=== PATIENT | female | born 1990 | race Hispanic/Latino ===

== ENCOUNTER 2020-12-05 02:27 | Day surgery (SDC) | payer OTHER ==
[2020-12-05 02:52] VITALS: BMI 36.3
[2020-12-05] MEDS ORDERED: hydrALAZINE 20 MG/ML VIAL SLOW IVP PRN (03:45)
== END 2020-12-05 06:48 | disposition home or self-care (01) ==
LOC: CSHLD/OP 02:27
PROVIDERS: ATTEND Obstetrics & Gynecology
DX: O47.1 False labor at or after 37 completed weeks of gestation (principal); O48.0 Post-term pregnancy; Z3A.40 40 weeks gestation of pregnancy; Z59.1 Inadequate housing
CPT/HCPCS: 99283

== ENCOUNTER 2020-12-06 15:25 | Inpatient (IN) | payer OTHER ==
[2020-12-06] MEDS ORDERED: hydrALAZINE 20 MG/ML VIAL SLOW IVP PRN (15:58)
[2020-12-06] MEDS ORDERED: Lidocaine 1% (PF) 30 ML VIAL SC PRN (16:17)
[2020-12-06] MEDS ORDERED: Promethazine HCl 25 MG/ML VIAL IM PRN ×2 (16:17→19:00)
[2020-12-06] MEDS ORDERED: Butorphanol Tartrate 1 MG/ML VIAL SLOW IVP PRN (16:17)
[2020-12-06] MEDS ORDERED: Acetaminophen 500 MG TAB PO PRN (16:17)
[2020-12-06] MEDS ORDERED: Ondansetron PF 4 MG/2 ML Vial IVP PRN ×2 (16:17→19:00)
[2020-12-06] MEDS ORDERED: Lactated Ringer's 1,000 ML IV SCH (16:30)
[2020-12-06 16:46] VITALS: BMI 36.2
[2020-12-06 16:51] LABS: Hemoglobin 12.8 g/dL (12.0-15.5); Mean Corpuscular HGB CONC 35.5 g/dL (32.0-36.0); Mean Corpuscular Hemoglobin 31.2 pg (27.0-33.0); Mean Platelet Volume 11.3 fl (7.4-10.4); Platelet Count 305 10x3/uL (150-450); RBC Distribution Width 12.2 % (11.5-14.5); White Blood Cell (WBC) Count 14.8 10x3/uL (3.5-10.5)
[2020-12-06] MEDS ORDERED: Fentanyl 4 mcg/Bup 0.1% Cadd 100 ML ONE (16:56)
[2020-12-06] MEDS ORDERED: Lidocaine 1% (PF) 30 ML VIAL ONE (17:23)
[2020-12-06] MEDS ORDERED: NS w/ Oxytocin 30 units 500 ML ONE ×2 (17:23→23:44)
[2020-12-06 17:24] LABS: Hep B Surf Ag Non-Reactive S/CO (NonReactive); Syphilis Antibody Nonreactive (Nonreactive); Syphilis Antibody Index 0.03 S/CO (<1.00 Non-Reactive)
[2020-12-06] MEDS ORDERED: diphenhydrAMINE 50 MG/ML VIAL IVP PRN (19:00)
[2020-12-06] MEDS ORDERED: Lactated Ringer's 500 ML IV PRN (19:00)
[2020-12-06] MEDS ORDERED: Fentanyl 4 mcg/Bupivacaine 0.1% Cassette 100 ML EPIDURAL SCH (19:00)
[2020-12-06] MEDS ORDERED: Acetaminophen 325 MG TAB PO PRN (19:00)
[2020-12-06] MEDS ORDERED: Naloxone HCl 0.4 mg/ml Vial IVP PRN ×2 (19:00)
[2020-12-06] MEDS ORDERED: Eucerin (Mineral Oil/Petrolatum,White) 30 gm Jar TOP PRN (19:00)
[2020-12-06] MEDS ORDERED: Communication Order-Pharmacy FS SCH (19:00)
[2020-12-06] MEDS ORDERED: ePHEDrine Sulfate 50 MG/10 ML VIAL SLOW IVP PRN (19:06)
[2020-12-07] MEDS ORDERED: NS w/ Oxytocin 30 units 500 ML ONE (00:53)
[2020-12-07] MEDS ORDERED: Benzocaine-Menthol 82.5 ML CAN TOP PRN (01:41)
[2020-12-07] MEDS ORDERED: Milk Of Magnesia 30 ML UDCUP PO PRN (01:41)
[2020-12-07] MEDS ORDERED: Lanolin Ointment 7 GM TUBE TOP PRN (01:41)
[2020-12-07] MEDS ORDERED: Preparation H Ointment 28 GM TUBE PR PRN (01:41)
[2020-12-07] MEDS ORDERED: Bisacodyl 10 MG SUPP PR PRN (01:41)
[2020-12-07] MEDS ORDERED: hydrALAZINE 20 MG/ML VIAL SLOW IVP PRN (01:41)
[2020-12-07] MEDS ORDERED: Misoprostol 200 MCG TAB VAG PRN (01:41)
[2020-12-07] MEDS ORDERED: diphenhydrAMINE 25 MG CAP PO PRN (01:41)
[2020-12-07] MEDS ORDERED: NS / Oxytocin 40 units/1000ml 1,000 ML IV SCH (01:41)
[2020-12-07] MEDS: Ibuprofen 800 MG TAB PO SCH ×3 (05:27→21:12)
[2020-12-07 06:12] LABS: Hemoglobin 11.4 g/dL (12.0-15.5); Mean Corpuscular HGB CONC 35.1 g/dL (32.0-36.0); Mean Corpuscular Hemoglobin 31.4 pg (27.0-33.0); Mean Corpuscular Volume 89.5 fl (81.6-98.3); Mean Platelet Volume 11.1 fl (7.4-10.4); Platelet Count 251 10x3/uL (150-450); RBC Distribution Width 12.5 % (11.5-14.5); Red Blood Cell (RBC) Count 3.63 10x6/uL (3.90-5.03); White Blood Cell (WBC) Count 17.5 10x3/uL (3.5-10.5)
[2020-12-07] MEDS: Ferrous Sulfate 325 MG TAB PO SCH ×2 (10:00→17:20)
[2020-12-07] MEDS: Prenatal Vitamin 1 TAB PO SCH (10:01)
[2020-12-07] MEDS: Docusate Calcium (SURFAK) 240 MG CAP PO SCH ×2 (10:01→21:12)
[2020-12-07 12:29] LABS: SARS-CoV-2 PCR by NAA Not Detected (NotDetected)
[2020-12-07] MEDS ORDERED: Bupivacaine 0.25% HCL 30 ML VIAL ONE (19:56)
[2020-12-08] MEDS ORDERED: Simethicone Chewable 80 MG TAB PO PRN (00:06)
[2020-12-08] MEDS: Ibuprofen 800 MG TAB PO SCH (05:12)
[2020-12-08] MEDS: Ferrous Sulfate 325 MG TAB PO SCH (07:20)
[2020-12-08] MEDS: Docusate Calcium (SURFAK) 240 MG CAP PO SCH (09:29)
[2020-12-08] MEDS: Prenatal Vitamin 1 TAB PO SCH (09:29)
[2020-12-08 10:30] VITALS: BP 112/57; TEMP 98
== END 2020-12-08 10:25 | disposition home or self-care (01) | DRG 807 ==
LOC: CSHLD/OP 15:25 → CSHLD 16:00 → CSHPP 12-07 02:00
PROVIDERS: ADMIT Obstetrics & Gynecology; ATTEND Obstetrics & Gynecology
PROC: 10E0XZZ Delivery of Products of Conception, External Approach (ICD-10-PCS; principal; 2020-12-06)
PROC: 0UQMXZZ Repair Vulva, External Approach (ICD-10-PCS; 2020-12-06)
PROC: 10907ZC Drainage of Amniotic Fluid, Therapeutic from Products of Conception, Via Natural or Artificial Opening (ICD-10-PCS; 2020-12-06)
DX: O48.0 Post-term pregnancy (principal); Z37.0 Single live birth; Z3A.40 40 weeks gestation of pregnancy; Z20.822 Contact with and (suspected) exposure to COVID-19; Z83.3 Family history of diabetes mellitus; Z87.440 Personal history of urinary (tract) infections; O71.82 Other specified trauma to perineum and vulva
CPT/HCPCS: 36415; 51702; 85027; 86780; 86850; 86900; 86901; 87340; 87635; 99285; J2001; J2405; J2590; S0020; U0003; U0005

== ENCOUNTER 2021-07-25 09:56 | Outpatient (CLI) | payer OTHER ==
[2021-07-25 10:57] LABS: Hemoglobin 11.7 g/dL (12.0-15.5); Mean Corpuscular HGB CONC 34.7 g/dL (32.0-36.0); Mean Corpuscular Hemoglobin 31.2 pg (27.0-33.0); Mean Corpuscular Volume 89.9 fl (81.6-98.3); Mean Platelet Volume 9.8 fl (7.4-10.4); Platelet Count 293 10x3/uL (150-450); RBC Distribution Width 12.2 % (11.5-14.5); Red Blood Cell (RBC) Count 3.75 10x6/uL (3.90-5.03); White Blood Cell (WBC) Count 9.3 10x3/uL (3.5-10.5)
[2021-07-25 17:35] LABS: SARS-CoV-2 PCR by NAA Not Detected (NotDetected)
== END 2021-07-25 09:57 | disposition home or self-care (01) ==
LOC: CSHLAB 09:56
PROVIDERS: ATTEND Student in an Organized Health Care Education/Training Program
DX: Z01.812 Encounter for preprocedural laboratory examination (principal); Z20.822 Contact with and (suspected) exposure to COVID-19
CPT/HCPCS: 85027; 86850; 86900; 86901; U0003; U0005